=== PATIENT | female | born 1965 | race American Indian/Alaskan Native ===

== ENCOUNTER 2019-01-14 22:38 | Inpatient (IN) | payer SELFPAY ==
--- NOTE | 2019-01-14 22:44 | Emergency Department Report ---
Blank Doc - Documentation Documentation: 53-year-old female that presents with AMS. Patient sent to room [address] Huang at bedside. Gave report to Dr. Huang and will put initial orders in.
[2019-01-14] MEDS ORDERED: LORazepam 2 MG/ML VIAL ONE (22:46)
[2019-01-14] MEDS ORDERED: LORazepam 2 MG/ML VIAL IM ONE (22:50)
--- NOTE | 2019-01-14 23:13 | Emergency Department Report ---
ED Altered Mental Status HPI - General Chief Complaint: Abdominal Pain Stated Complaint: ABD PAIN Time Seen by Provider: 01/14/19 22:39 Source: patient Mode of arrival: Wheelchair Limitations: Altered Mental Status - History of Present Illness Initial Comments: 53 yo F brought in by a friend. Patient was reportedly in a store exhibiting bizarre behavior, so they brought her to the ER. Friend reports history of drug abuse by patient. Patient is yelling, screaming, fighting with staff. Patient is not answering any questions. Patient requires sedation. MD Complaint: altered mental status -: unknown Consistency of Symptoms: constant Context: other (possible drug use) - Related Data Allergies Allergy/AdvReac Type Severity Reaction Status Date / Time No Known Allergies Allergy Verified 01/14/19 22:42 ED Review of Systems ROS: Stated complaint: ABD PAIN Other details as noted in HPI Comment: Unobtainable due to pts medical conditions ED Physical Exam - General Limitations: Altered Mental Status General appearance: alert - Head Head exam: Present: atraumatic, normocephalic - Eye Eye exam: Present: normal appearance, PERRL, EOMI - ENT ENT exam: Present: mucous membranes moist - Neck Neck exam: Present: normal inspection - Respiratory Respiratory exam: Present: normal lung sounds bilaterally. Absent: respiratory distress - Cardiovascular Cardiovascular Exam: Present: regular rate, normal rhythm - GI/Abdominal GI/Abdominal exam: Present: soft. Absent: distended - Extremities Exam Extremities exam: Present: full ROM - Neurological Exam Neurological exam: Present: alert, other (unable to assess fully, pt is yelling and screaming, fighting; she then calms down and is able to clearly state, "I'm ok, let me go home") - Psychiatric Psychiatric exam: Present: agitated - Skin Skin exam: Present: warm, dry, intact, normal color ED Course Vital Signs 01/14/19 01/14/19 01/15/19 22:41 23:00 00:00 Temperature 98.4 F Pulse Rate 71 65 60 Respiratory 34 H 24 20 Rate Blood Pressure 210/120 Blood Pressure 231/131 143/97 [Right] O2 Sat by Pulse 100 100 99 Oximetry 01/15/19 01/15/19 01/15/19 02:00 03:24 04:00 Temperature Pulse Rate 62 62 62 Respiratory 20 20 Rate Blood Pressure 169/99 Blood Pressure 162/99 163/99 [Right] O2 Sat by Pulse 98 99 Oximetry - Lab Data Result diagrams: 01/14/19 23:14 01/14/19 23:14 Lab Results 01/14/19 01/14/19 01/14/19 Range/Units 23:14 23:14 23:14 WBC 7.6 (4.5-11.0) K/mm3 RBC 5.22 H (3.65-5.03) M/mm3 Hgb 14.3 (10.1-14.3) gm/dl Hct 43.4 H (30.3-42.9) % MCV 83 (79-97) fl MCH 27 L (28-32) pg MCHC 33 (30-34) % RDW 15.9 H (13.2-15.2) % Plt Count 202 (140-440) K/mm3 Lymph % (Auto) 17.2 (13.4-35.0) % [place] % (Auto) 10.6 H (0.0-7.3) % Eos % (Auto) 1.0 (0.0-4.3) % Baso % (Auto) 0.5 (0.0-1.8) % Lymph # 1.3 (1.2-5.4) K/mm3 [place] # 0.8 (0.0-0.8) K/mm3 Eos # 0.1 (0.0-0.4) K/mm3 Baso # 0.0 (0.0-0.1) K/mm3 Add Manual Diff Complete Seg Neutrophils % 70.7 H (40.0-70.0) % Nucleated RBC % Not Reportable Seg Neutrophils # 5.5 (1.8-7.7) K/mm3 WBC Morphology Not Reportable Hypersegmented Neuts Not Reportable Hyposegmented Neuts Not Reportable Hypogranular Neuts Not Reportable Smudge Cells Not Reportable Toxic Granulation Not Reportable Toxic Vacuolation Not Reportable Dohle Bodies Not Reportable Pelger-Huet Anomaly Not Reportable Brian Rods Not Reportable Platelet Estimate Not Reportable Clumped Platelets Not Reportable Plt Clumps, EDTA Not Reportable Large Platelets Not Reportable Giant Platelets Not Reportable Platelet Satelliting Not Reportable Plt Morphology Comment Not Reportable RBC Morphology Not Reportable Dimorphic RBCs Not Reportable Polychromasia Not Reportable Hypochromasia Not Reportable Poikilocytosis Not Reportable Anisocytosis Not Reportable Microcytosis Not Reportable Macrocytosis Not Reportable Spherocytes Not Reportable Pappenheimer Bodies Not Reportable Sickle Cells Not Reportable Target Cells Not Reportable Tear Drop Cells Not Reportable Ovalocytes Not Reportable Helmet Cells Not Reportable Torre-Bradgate Bodies Not Reportable [place] Rings Not Reportable [place] Cells Not Reportable Bite Cells Not Reportable Crenated Cell Not Reportable Elliptocytes Not Reportable Acanthocytes (Spur) Not Reportable Rouleaux Not Reportable Hemoglobin C Crystals Not Reportable Schistocytes Not Reportable Malaria parasites Not Reportable Yuan Bodies Not Reportable Hem Pathologist Commnt Not Reportable Sodium 143 (137-145) mmol/L Potassium 3.1 L (3.6-5.0) mmol/L Chloride 99.0 (98-107) mmol/L Carbon Dioxide 28 (22-30) mmol/L Anion Gap 19 mmol/L BUN 21 H (7-17) mg/dL Creatinine 2.1 H (0.7-1.2) mg/dL Estimated GFR 25 ml/min BUN/Creatinine Ratio 10 % Glucose 111 H (65-100) mg/dL Calcium 9.4 (8.4-10.2) mg/dL Total Bilirubin 0.30 (0.1-1.2) mg/dL Direct Bilirubin < 0.2 (0-0.2) mg/dL AST 16 (5-40) units/L ALT 14 (7-56) units/L Alkaline Phosphatase 68 (35-129) units/L Total Creatine Kinase (30-135) units/L Total Protein 7.2 (6.3-8.2) g/dL Albumin 4.3 (3.9-5) g/dL Albumin/Globulin Ratio 1.5 % Urine Color (Yellow) Urine Turbidity (Clear) Urine pH (5.0-7.0) Ur Specific [place] (1.003-1.030) Urine Protein (Negative) mg/dL Urine Glucose (UA) (Negative) mg/dL Urine Ketones (Negative) mg/dL Urine Blood (Negative) Urine Nitrite (Negative) Urine Bilirubin (Negative) Urine Urobilinogen (<2.0) mg/dL Ur Leukocyte Esterase (Negative) Urine WBC (Auto) (0.0-6.0) /HPF Urine RBC (Auto) (0.0-6.0) /HPF U Epithel Cells (Auto) (0-13.0) /HPF Amorphous Crystals Urine Mucus /HPF Salicylates < 0.3 L (2.8-20.0) mg/dL Urine Opiates Screen Urine Methadone Screen Acetaminophen (10.0-30.0) ug/mL Ur Barbiturates Screen Ur Phencyclidine Scrn Ur Amphetamines Screen U Benzodiazepines Scrn Urine Cocaine Screen U Marijuana (THC) Screen Drugs of Abuse Note Plasma/Serum Alcohol (0-0.07) % 01/14/19 01/14/19 01/14/19 Range/Units 23:14 23:14 23:51 WBC (4.5-11.0) K/mm3 RBC (3.65-5.03) M/mm3 Hgb (10.1-14.3) gm/dl Hct (30.3-42.9) % MCV (79-97) fl MCH (28-32) pg MCHC (30-34) % RDW (13.2-15.2) % Plt Count (140-440) K/mm3 Lymph % (Auto) (13.4-35.0) % [place] % (Auto) (0.0-7.3) % Eos % (Auto) (0.0-4.3) % Baso % (Auto) (0.0-1.8) % Lymph # (1.2-5.4) K/mm3 [place] # (0.0-0.8) K/mm3 Eos # (0.0-0.4) K/mm3 Baso # (0.0-0.1) K/mm3 Add Manual Diff Seg Neutrophils % (40.0-70.0) % Nucleated RBC % Seg Neutrophils # (1.8-7.7) K/mm3 WBC Morphology Hypersegmented Neuts Hyposegmented Neuts Hypogranular Neuts Smudge Cells Toxic Granulation Toxic Vacuolation Dohle Bodies Pelger-Huet Anomaly Brian Rods Platelet Estimate Clumped Platelets Plt Clumps, EDTA Large Platelets Giant Platelets Platelet Satelliting Plt Morphology Comment RBC Morphology Dimorphic RBCs Polychromasia Hypochromasia Poikilocytosis Anisocytosis Microcytosis Macrocytosis Spherocytes Pappenheimer Bodies Sickle Cells Target Cells Tear Drop Cells Ovalocytes Helmet Cells Torre-Bradgate Bodies [place] Rings Khloe Cells Bite Cells Crenated Cell Elliptocytes Acanthocytes (Spur) Rouleaux Hemoglobin C Crystals Schistocytes Malaria parasites Yuan Bodies Hem Pathologist Commnt Sodium (137-145) mmol/L Potassium (3.6-5.0) mmol/L Chloride (98-107) mmol/L Carbon Dioxide (22-30) mmol/L Anion Gap mmol/L BUN (7-17) mg/dL Creatinine (0.7-1.2) mg/dL Estimated GFR ml/min BUN/Creatinine Ratio % Glucose (65-100) mg/dL Calcium (8.4-10.2) mg/dL Total Bilirubin (0.1-1.2) mg/dL Direct Bilirubin (0-0.2) mg/dL AST (5-40) units/L ALT (7-56) units/L Alkaline Phosphatase (35-129) units/L Total Creatine Kinase (30-135) units/L Total Protein (6.3-8.2) g/dL Albumin (3.9-5) g/dL Albumin/Globulin Ratio % Urine Color Yellow (Yellow) Urine Turbidity Cloudy (Clear) Urine pH 7.0 (5.0-7.0) Ur Specific [place] 1.011 (1.003-1.030) Urine Protein <15 mg/dl (Negative) mg/dL Urine Glucose (UA) 150 (Negative) mg/dL Urine Ketones Neg (Negative) mg/dL Urine Blood Sm (Negative) Urine Nitrite Neg (Negative) Urine Bilirubin Neg (Negative) Urine Urobilinogen < 2.0 (<2.0) mg/dL Ur Leukocyte Esterase Tr (Negative) Urine WBC (Auto) 3.0 (0.0-6.0) /HPF Urine RBC (Auto) 6.0 (0.0-6.0) /HPF U Epithel Cells (Auto) 22.0 H (0-13.0) /HPF Amorphous Crystals Few Urine Mucus Few /HPF Salicylates (2.8-20.0) mg/dL Urine Opiates Screen Urine Methadone Screen Acetaminophen < 5.0 L (10.0-30.0) ug/mL Ur Barbiturates Screen Ur Phencyclidine Scrn Ur Amphetamines Screen U Benzodiazepines Scrn Urine Cocaine Screen U Marijuana (THC) Screen Drugs of Abuse Note Plasma/Serum Alcohol < 0.01 (0-0.07) % 01/14/19 01/15/19 Range/Units 23:51 02:01 WBC (4.5-11.0) K/mm3 RBC (3.65-5.03) M/mm3 Hgb (10.1-14.3) gm/dl Hct (30.3-42.9) % MCV (79-97) fl MCH (28-32) pg MCHC (30-34) % RDW (13.2-15.2) % Plt Count (140-440) K/mm3 Lymph % (Auto) (13.4-35.0) % [place] % (Auto) (0.0-7.3) % Eos % (Auto) (0.0-4.3) % Baso % (Auto) (0.0-1.8) % Lymph # (1.2-5.4) K/mm3 [place] # (0.0-0.8) K/mm3 Eos # (0.0-0.4) K/mm3 Baso # (0.0-0.1) K/mm3 Add Manual Diff Seg Neutrophils % (40.0-70.0) % Nucleated RBC % Seg Neutrophils # (1.8-7.7) K/mm3 WBC Morphology Hypersegmented Neuts Hyposegmented Neuts Hypogranular Neuts Smudge Cells Toxic Granulation Toxic Vacuolation Dohle Bodies Pelger-Huet Anomaly Brian Rods Platelet Estimate Clumped Platelets Plt Clumps, EDTA Large Platelets Giant Platelets Platelet Satelliting Plt Morphology Comment RBC Morphology Dimorphic RBCs Polychromasia Hypochromasia Poikilocytosis Anisocytosis Microcytosis Macrocytosis Spherocytes Pappenheimer Bodies Sickle Cells Target Cells Tear Drop Cells Ovalocytes Helmet Cells Torre-Bradgate Bodies [place] Rings Khloe Cells Bite Cells Crenated Cell Elliptocytes Acanthocytes (Spur) Rouleaux Hemoglobin C Crystals Schistocytes Malaria parasites Yuan Bodies Hem Pathologist Commnt Sodium (137-145) mmol/L Potassium (3.6-5.0) mmol/L Chloride (98-107) mmol/L Carbon Dioxide (22-30) mmol/L Anion Gap mmol/L BUN (7-17) mg/dL Creatinine (0.7-1.2) mg/dL Estimated GFR ml/min BUN/Creatinine Ratio % Glucose (65-100) mg/dL Calcium (8.4-10.2) mg/dL Total Bilirubin (0.1-1.2) mg/dL Direct Bilirubin (0-0.2) mg/dL AST (5-40) units/L ALT (7-56) units/L Alkaline Phosphatase (35-129) units/L Total Creatine Kinase 149 H (30-135) units/L Total Protein (6.3-8.2) g/dL Albumin (3.9-5) g/dL Albumin/Globulin Ratio % Urine Color (Yellow) Urine Turbidity (Clear) Urine pH (5.0-7.0) Ur Specific [place] (1.003-1.030) Urine Protein (Negative) mg/dL Urine Glucose (UA) (Negative) mg/dL Urine Ketones (Negative) mg/dL Urine Blood (Negative) Urine Nitrite (Negative) Urine Bilirubin (Negative) Urine Urobilinogen (<2.0) mg/dL Ur Leukocyte Esterase (Negative) Urine WBC (Auto) (0.0-6.0) /HPF Urine RBC (Auto) (0.0-6.0) /HPF U Epithel Cells (Auto) (0-13.0) /HPF Amorphous Crystals Urine Mucus /HPF Salicylates (2.8-20.0) mg/dL Urine Opiates Screen Presumptive negative Urine Methadone Screen Presumptive negative Acetaminophen (10.0-30.0) ug/mL Ur Barbiturates Screen Presumptive negative Ur Phencyclidine Scrn Presumptive negative Ur Amphetamines Screen Presumptive negative U Benzodiazepines Scrn Presumptive negative Urine Cocaine Screen Presumptive positive U Marijuana (THC) Screen Presumptive negative Drugs of Abuse Note Disclamer Plasma/Serum Alcohol (0-0.07) % - EKG Data -: EKG Interpreted by Dc EKG shows normal: sinus rhythm, axis, intervals, QRS complexes, ST-T waves Rate: bradycardia Interpretation: no acute changes - Radiology Data Radiology results: report reviewed, image reviewed - Medical Decision Making 53 yo F presented to ED w/ agitation, altered mental status, requiring sedation w/ geodon and ativan. CT Head negative. Drug screen positive for cocaine. Pt initially severely hypertensive. Hydralazine given with resulting improvement in BP. BUN and Cr elevated. CK only slightly elevated. Does not appear to be in rhabdomyolysis. Due to altered mental status, hypertensive urgency and ARF, will admit to hospitalist. - Differential Diagnosis drug abuse, rhabdomyolysis, intracranial abnormality Critical Care Time: Yes Critical care time in (mins) excluding proc time.: 35 Critical care attestation.: If time is entered above; I have spent that time in minutes in the direct care of this critically ill patient, excluding procedure time. Critical Care Time: 35 min ED Disposition Clinical Impression: Cocaine abuse, Acute renal failure, Hypertensive emergency, Hypokalemia Disposition: [id number] OP ADMIT IP TO THIS HOSP Is pt being admited?: Yes Condition: Stable Instructions: Abdominal Pain (ED), Hypertension (ED) Time of Disposition: 04:18
[2019-01-14] MEDS ORDERED: ZIPRASIDONE MESYLATE 20 MG VIAL IM PRN (23:15)
[2019-01-14] MEDS ORDERED: ZIPRASIDONE MESYLATE 20 MG VIAL IM ONE (23:20)
[2019-01-14 23:39] LABS: Hematocrit 43.4 % (30.3-42.9); Hemoglobin 14.3 gm/dl (10.1-14.3); Mean Corpuscular HGB Conc 33 % (30-34); Mean Corpuscular Volume 83 fl (79-97); Platelet Count 202 K/mm3 (140-440); Red Blood Count 5.22 M/mm3 (3.65-5.03); Red Cell Distribution Width 15.9 % (13.2-15.2)
[2019-01-15 00:30] LABS: Amorphous Crystals,Urine Few; Bilirubin,Urine NEG (Negative); Blood,Urine SM (Negative); Color,Urine Yellow (Yellow); Mucus,Urine FEW /HPF; Protein,Urine <15 mg/dL mg/dL (Negative); Urobilinogen,Urine < 2.0 mg/dL (<2.0)
[2019-01-15 00:31] LABS: Amphetamine Screen,Urine PRESUMPTIVE NEGATIVE; Benzodiazepines Screen,Urine PRESUMPTIVE NEGATIVE; Cannabinoid Screen,Urine PRESUMPTIVE NEGATIVE; Methadone Screen,Urine PRESUMPTIVE NEGATIVE; Opiate Screen,Urine PRESUMPTIVE NEGATIVE
[2019-01-15 00:32] LABS: Alanine Aminotransferase 14 units/L (7-56); Albumin 4.3 g/dL (3.9-5); BUN/Creatinine Ratio 10; Blood Urea Nitrogen 21 mg/dL (7-17); Calcium 9.4 mg/dL (8.4-10.2); Hemolysis Index 27
[2019-01-15 00:49] LABS: Cocaine Screen,Urine PRESUMPTIVE POSITIVE
[2019-01-15 01:07] LABS: Bilirubin,Direct < 0.2 mg/dL (0-0.2)
--- NOTE | 2019-01-15 01:18 | Cat Scan Report ---
CT head/brain wo con INDICATION: AMS. TECHNIQUE: Routine CT head without contrast. All CT scans at this location are performed using CT dos e reduction for ALARA by means of automated exposure control. COMPARISON: None. FINDINGS: BRAIN / INTRACRANIAL CONTENTS: No acute hemorrhage, mass effect, midline shift, or hydrocephalus. No appreciable acute large territorial or lacunar infarct. No chronic infarct or focal atrophy. Normal b rain volume and ventricular/sulcal size for age. ORBITS: No significant abnormality of visualized orbits. SINUSES / MASTOIDS: No significant abnormality of visualized sinuses and mastoid air cells. ADDITIONAL FINDINGS: None. IMPRESSION: 1. No acute intracranial abnormality on noncontrast CT of the brain. Signer Name: Ibeth Johnson MD Signed: 01/15/2019 1:13 AM Workstation Name: [id number]
[2019-01-15] MEDS ORDERED: SODIUM CHLORIDE 0.9% 1000 ML 1,000 ML ONE (01:56)
[2019-01-15] MEDS ORDERED: SODIUM CHLORIDE 0.9% 1000 ML 1,000 ML IV ONE (01:56)
[2019-01-15] MEDS ORDERED: hydrALAZINE 20 MG/1 ML INJ IV ONE (02:41)
[2019-01-15] MEDS ORDERED: POTASSIUM CHLORIDE 10 MEQ 10 MEQ/100 ML BAG IV ONE ×2 (03:08→07:11)
[2019-01-15] MEDS: POTASSIUM CHLORIDE 10 MEQ 10 MEQ/100 ML BAG IV SCH ×4 (03:24→07:18)
[2019-01-15 05:04] LABS: Basophils % (Auto) 0.5 % (0.0-1.8); Eosinophils # (Auto) 0.1 K/mm3 (0.0-0.4); Lymphocytes # (Auto) 1.3 K/mm3 (1.2-5.4); Lymphocytes % (Auto) 17.2 % (13.4-35.0); Monocytes # (Auto) 0.8 K/mm3 (0.0-0.8); Monocytes % (Auto) 10.6 % (0.0-7.3)
[2019-01-15] MEDS ORDERED: hydrALAZINE 20 MG/1 ML INJ IV PRN (05:30)
[2019-01-15] MEDS ORDERED: ACETAMINOPHEN 325 MG TAB PO PRN (05:33)
[2019-01-15] MEDS ORDERED: LORazepam 2 MG/ML VIAL IV PRN (05:44)
[2019-01-15] MEDS ORDERED: SODIUM CHLORIDE 0.9% 1000 ML 1,000 ML IV SCH (06:00)
--- NOTE | 2019-01-15 07:09 | History and Physical Report ---
CHIEF COMPLAINT: Change in mental status. HISTORY OF PRESENT ILLNESS: The patient is a 53-year-old female brought in by a friend because of aggressive and combative behavior. The patient's friend said that the patient has a history of illicit drug abuse. The patient was noted to have come into the Emergency Room, yelling, screaming and fighting with the staff and was not able to provide a reliable history and subsequently the patient was sedated to be able to prevent violence. There was no prior history of nausea or vomiting and no history of fever or chills or shortness of breath. PAST MEDICAL HISTORY: Pertinent for illicit drug abuse. FAMILY HISTORY: Noncontributory. PAST SURGICAL HISTORY: Noncontributory. SOCIAL HISTORY: The patient is known to use illicit drugs, it is not clear whether the patient drinks alcohol or smokes cigarette. MEDICATIONS: The patient's home medications are not known at this time. ALLERGIES: There are no known drug allergies. REVIEW OF SYSTEMS: CONSTITUTIONAL: There is no fever, no chills, no diaphoresis. HEENT: There is no headache or sore throat. CARDIOVASCULAR SYSTEM: There is no chest pain or orthopnea. RESPIRATORY SYSTEM: There is no shortness of breath or cough. GASTROINTESTINAL SYSTEM: There is no nausea, no vomiting, no abdominal pain, diarrhea or constipation. NEUROLOGICAL SYSTEM: There is altered mental status with agitation and combativeness. MUSCULOSKELETAL SYSTEM: There is no joint pain or swelling. DERMATOLOGICAL SYSTEM: There is no skin rash or itching. GENITOURINARY SYSTEM: There is no dysuria, hematuria, or flank pain. Rest of system review is normal. PHYSICAL EXAMINATION: GENERAL: At the time of exam, the patient was found to be sleeping on her bed after being sedated following combativeness and not in acute distress. VITAL SIGNS: At the initial time of presentation showed temperature of 98.4 degrees Fahrenheit, pulse of 71, respirations 34, initial blood pressure 231/131, blood pressure has come down to 162/99 after treatment. O2 sat was 100% on room air. HEENT: Showed pupils to be equal, round, reactive to light and accommodating. NECK: Supple with no JVD or carotid bruit. CARDIOVASCULAR SYSTEM: Showed normal first and second heart sounds, which were rapid initially, but later on became normal with no gallops or murmurs. RESPIRATORY SYSTEM: Showed good air entry on both sides of the lungs with no abnormal breath sounds. GASTROINTESTINAL SYSTEM: Showed abdomen to be full, soft, nontender with no organomegaly or rigidity. NEUROLOGIC: Shows no focal deficit. MUSCULOSKELETAL SYSTEM: Showed no joint swelling or tenderness. DERMATOLOGICAL SKIN: Showed no skin rash. GENITOURINARY SYSTEM: Showing no costovertebral angle tenderness. PERTINENT LABORATORY AND IMAGING STUDIES: The patient had CT of the head without contrast done that shows no acute intracranial abnormality. The patient's lab results show CBC with normal white count, normal hemoglobin with slightly elevated hematocrit level of 43.4. CBC differential shows elevated monocyte count of 10.6 and slightly elevated, segmented neutrophil count of 70.7%. The patient's chemistry showed low potassium level of 3.1 with elevated BUN of 21 and elevated creatinine of 2.1. Rest of chemistry was unremarkable. The patient's urinalysis was unremarkable, and the patient's toxicology screen is positive for cocaine. DIAGNOSES: 1. Altered mental status with combativeness. 2. Acute kidney injury. 3. Hypertensive crisis. 4. Cocaine abuse. 5. Hypokalemia PLAN OF CARE: 1. The patient will be admitted to telemetry as inpatient. 2. The patient will have serial cardiac enzymes involving troponin, total CK, and CK-MB checked q. 6 hours x 2 more levels. 3. The patient will be on IV normal saline running at 125 mL an hour. 4. The patient will have Nephrology consult with Dr. Flores for management of acute kidney injury. 5. The patient will be on IV hydralazine 10 mg every 4 hours as needed for blood pressure of 150/90 or more. 6. The patient will have basic metabolic panel done this morning to monitor potassium level having received some IV potassium replacement 7. The patient will be on IV Ativan 1 mg every 2 hours as needed for agitation and combativeness. JOB# [id number] OCN/NTS JULIO C
--- NOTE | 2019-01-15 10:17 | Event Note ---
Date: 01/15/19 This is a follow-up from an admission earlier this morning. Patient remains confused and agitated requiring 4 point restraints. Encephalopathy etiology may be related to hypertension versus metabolic from acute kidney injury. We'll add neurology consultation. Nephrology consultation pending. Creatinine is 2.1 with no known baseline. We will continue the plan as outlined in H&P.
[2019-01-15 10:22] LABS: Creatine Kinase MB 3.2 ng/mL (0.0-4.0)
[2019-01-15 10:26] LABS: BUN/Creatinine Ratio 11; Blood Urea Nitrogen 17 mg/dL (7-17); Calcium 9.3 mg/dL (8.4-10.2); Hemolysis Index 15
--- NOTE | 2019-01-15 11:44 | Consultation ---
History of Present Illness - Reason for Consult Consult date: 01/15/19 acute renal failure Requesting physician: JAVIER PURCELL - History of Present Illness 53 yo F brought in by a friend. Patient was reportedly in a store exhibiting bizarre behavior, so they brought her to the ER. Friend reports history of drug abuse by patient. Patient is yelling, screaming, fighting with staff. Patient is not answering any questions. Patient requires sedation. MD Complaint: altered mental status -: unknown Consistency of Symptoms: constant Context: other (possible drug use) ED Review of Systems ROS: Stated complaint: ABD PAIN Other details as noted in HPI Past History Past Medical History: other (drug abuse) Social history: IV drug use Family history: no significant family history Medications and Allergies Allergies Allergy/AdvReac Type Severity Reaction Status Date / Time No Known Allergies Allergy Verified 01/14/19 22:42 Home Medications Medication Instructions Recorded Confirmed Last Taken Type Unobtainable 01/15/19 01/15/19 Unknown History Active Meds: Active Medications Acetaminophen (Tylenol) 650 mg PO Q4H PRN PRN Reason: Headache Heparin Sodium (Porcine) (Heparin) 5,000 unit SUB-Q Q12HR SELVIN Hydralazine HCl (Apresoline) 10 mg IV Q4H PRN PRN Reason: Blood Pressure Sodium Chloride (Nacl 0.9% 1000 Ml) 1,000 mls @ 125 mls/hr IV DIRECT SELVIN Lorazepam (Ativan) 1 mg IV Q2H PRN PRN Reason: Agitation Last Admin: 01/15/19 08:26 Dose: 1 mg Documented by: Exam - Vital Signs Vital signs: Vital Signs Pulse Resp BP Pulse Ox 71 34 H 231/131 100 01/14/19 22:41 01/14/19 22:41 01/14/19 22:41 01/14/19 22:41 - Physical Exam Narrative exam: - General Limitations: Altered Mental Status General appearance: alert - Head Head exam: Present: atraumatic, normocephalic - Eye Eye exam: Present: normal appearance, PERRL, EOMI - ENT ENT exam: Present: mucous membranes moist - Neck Neck exam: Present: normal inspection - Respiratory Respiratory exam: Present: normal lung sounds bilaterally. Absent: respiratory distress - Cardiovascular Cardiovascular Exam: Present: regular rate, normal rhythm - GI/Abdominal GI/Abdominal exam: Present: soft. Absent: distended - Extremities Exam Extremities exam: Present: full ROM - Neurological Exam Neurological exam: Present: alert, other (unable to assess fully, pt is yelling and screaming, fighting; she then calms down and is able to clearly state, "I'm ok, let me go home") - Psychiatric Psychiatric exam: Present: agitated - Skin Skin exam: Present: warm, dry, intact, normal color Results - Lab Results 01/14/19 23:14 01/15/19 09:10 Most recent lab results Calcium 9.3 mg/dL (8.4-10.2) 01/15/19 09:10 Assessment and Plan Impression: * ABIEL * volume depletion * drug abuse * hypokalemia * UTI Plan: * ivfs and iv abx * replete k and follow up mag levels * strict i/os * cr is improving * follow up lytes in am
[2019-01-15] MEDS ORDERED: SODIUM CHLORIDE 0.9% 1000 ML 1,000 ML with POTASSIUM CHLORIDE 20 MEQ IV SCH (11:45)
[2019-01-15] MEDS ORDERED: NACL 0.9%/KCL 20 MEQ 20 MEQ/1,000 ML BAG IV SCH (12:00)
[2019-01-15 13:30] LABS: Creatine Kinase MB 2.9 ng/mL (0.0-4.0)
[2019-01-15] MEDS: cefTRIAXone/NS 1 GM/50 ML 1 GM/50 ML BAG IV SCH (14:39)
[2019-01-15] MEDS ORDERED: MAGNESIUM SULFATE 2 GM/50 ML BAG IV ONE (16:00)
--- NOTE | 2019-01-15 17:17 | Consultation ---
History of Present Illness Consult date: 01/15/19 Reason for Consult: Altered mental status Chief complaint: Altered mental status History of present illness: Patient is a 53-year-old woman with a history of substance abuse. Yesterday, she was reportedly with a friend in a store, when she was noted to have altered mental status. The patient was therefore brought to the emergency room. In the emergency room she was noted to be aggressive and combative, for which she was sedated. Patient was found to have elevated creatinine level, as well as hypertensive urgency. Today, the patient reportedly is back to baseline of mental status, however she is noncooperative as she wants to go home. Past History Past Medical History: other (drug abuse) Social history: IV drug use, other (cocaine) Family history: no significant family history Medications and Allergies Allergies Allergy/AdvReac Type Severity Reaction Status Date / Time No Known Allergies Allergy Verified 01/14/19 22:42 Home Medications Medication Instructions Recorded Confirmed Last Taken Type Unobtainable 01/15/19 01/15/19 Unknown History Active Meds: Active Medications Acetaminophen (Tylenol) 650 mg PO Q4H PRN PRN Reason: Headache Heparin Sodium (Porcine) (Heparin) 5,000 unit SUB-Q Q12HR SELVIN Hydralazine HCl (Apresoline) 10 mg IV Q4H PRN PRN Reason: Blood Pressure Last Admin: 01/15/19 14:22 Dose: 10 mg Documented by: Magnesium Sulfate (Magnesium Sulfate 2gm/50ml) 2 gm in 50 mls @ 25 mls/hr IV ONCE ONE Stop: 01/15/19 17:59 Ceftriaxone Sodium (Rocephin/Ns 1 Gm/50 Ml) 1 gm in 50 mls @ 100 mls/hr IV Q24HR SELVIN; Protocol Potassium Chloride/Sodium Chloride (Ns/Kcl 20meq) 20 meq in 1,000 mls @ 125 mls/hr IV DIRECT SELVIN Lorazepam (Ativan) 1 mg IV Q2H PRN PRN Reason: Agitation Last Admin: 01/15/19 08:26 Dose: 1 mg Documented by: Review of Systems ROS unobtainable: due to mental status (Patient non-cooperative and voluntarily refuses to answer questions.) Physical Examination - Vital Signs Vital Signs: Vital Signs Pulse Resp BP Pulse Ox 71 34 H 231/131 100 01/14/19 22:41 01/14/19 22:41 01/14/19 22:41 01/14/19 22:41 - Physical Exam Narrative exam: Patient is awake, alert, oriented 4, follows complex commands. Patient notably was given Ativan prior to exam due to combative behavior. Patient is noncooperative when asked questions and asked to follow most commands. Noted to move all extremities equally and spontaneously in an attempt to get out of restraints. Visual field full to threat. Pupils equal, round, reactive to light. No facial weakness noted. - Constitutional General appearance: uncomfortable - EENT EENT: Present: ATNC, PERRL, mucous membranes moist - Respiratory Respiratory: Present: lungs clear, normal breath sounds - Cardiovascular Cardiovascular: Present: regular rate, normal S1, normal S2 Extremities: Present: no clubbing, cyanosis, no inflammation - Gastrointestinal Gastrointestinal: Present: normoactive bowel sounds, soft, non-tender - Integumentary Integumentary: Present: normal - Psychiatric Psychiatric: Present: other (Noncooperative) Results - Laboratory Findings CBC and BMP: 01/14/19 23:14 01/15/19 09:10 Abnormal Lab Findings: Abnormal Labs 01/14/19 01/14/19 01/14/19 23:14 23:14 23:14 RBC 5.22 H Hct 43.4 H MCH 27 L RDW 15.9 H Assumption % (Auto) 10.6 H Seg Neutrophils % 70.7 H Potassium 3.1 L BUN 21 H Creatinine 2.1 H Glucose 111 H Total Creatine Kinase U Epithel Cells (Auto) Salicylates < 0.3 L Acetaminophen 01/14/19 01/14/19 01/15/19 23:14 23:51 02:01 RBC Hct MCH RDW Assumption % (Auto) Seg Neutrophils % Potassium BUN Creatinine Glucose Total Creatine Kinase 149 H U Epithel Cells (Auto) 22.0 H Salicylates Acetaminophen < 5.0 L 01/15/19 01/15/19 09:10 12:11 RBC Hct MCH RDW [place] % (Auto) Seg Neutrophils % Potassium 3.2 L BUN Creatinine 1.5 H Glucose Total Creatine Kinase 208 H 202 H U Epithel Cells (Auto) Salicylates Acetaminophen Assessment and Plan Patient is a 53-year-old woman with a history of substance abuse, who p/w altered mental status. According the patient's clinical findings, it is likely that she has had metabolic encephalopathy related to hypertensive urgency, AK I with elevated creatinine, as well as substance abuse, as cocaine was found positive in her UDS. Of note, mental status is now back to baseline, however patient is notably noncooperative as she wants to leave the hospital. Plan: 1. Metabolic Encephalopathy: - Likely due to ABIEL, Hypertensive urgency, and cocaine use - CT head unremarkable. - Patient back at baseline mental status now, however nocooperative as she wants to be discharged. - As patient is back to baseline of mental status, would not recommend any further neurologic investigations at this time. - Recommend for primary team to continue to correct metabolic abnormalities. - Will sign off as patient is now back to baseline of mental status. Please call with any questions. Thank you for allowing me to take part in the care of this patient. Maximo Edwards MD Neurology
[2019-01-15] MEDS: HEPARIN 5,000 UNIT/1 ML VIAL SUB-Q SCH (17:38)
[2019-01-16] MEDS: HEPARIN 5,000 UNIT/1 ML VIAL SUB-Q SCH ×2 (00:14→11:51)
[2019-01-16 00:46] VITALS: BP 124/90
[2019-01-16 04:56] LABS: Basophils # (Auto) 0.1 K/mm3 (0.0-0.1); Basophils % (Auto) 0.6 % (0.0-1.8); Eosinophils # (Auto) 0.1 K/mm3 (0.0-0.4); Eosinophils % (Auto) 1.1 % (0.0-4.3); Hematocrit 50.2 % (30.3-42.9); Hemoglobin 15.9 gm/dl (10.1-14.3); Lymphocytes # (Auto) 2.3 K/mm3 (1.2-5.4); Lymphocytes % (Auto) 25.5 % (13.4-35.0); Mean Corpuscular HGB Conc 32 % (30-34); Mean Corpuscular Volume 84 fl (79-97); Monocytes # (Auto) 1.1 K/mm3 (0.0-0.8); Monocytes % (Auto) 12.8 % (0.0-7.3); Platelet Count 234 K/mm3 (140-440); Red Blood Count 5.98 M/mm3 (3.65-5.03); Red Cell Distribution Width 16.3 % (13.2-15.2)
[2019-01-16 05:22] LABS: Calcium 8.9 mg/dL (8.4-10.2)
[2019-01-16 05:23] LABS: Calcium 9.1 mg/dL (8.4-10.2)
[2019-01-16] MEDS ORDERED: POTASSIUM CHLORIDE ER 20 MEQ TAB PO NR (08:05)
--- NOTE | 2019-01-16 09:48 | Discharge Summary ---
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 Patient was reportedly in a store exhibiting bizarre behavior, so they brought her to the ER. Friend reports history of drug abuse by patient. Patient is yelling, screaming, fighting with staff. Patient is not answering any questions. Patient requires sedation. Patient was admitted to the floor for the management of acute kidney injury, cocaine abuse, altered mental status. Patient was agitated and refused the treatment. I have seen and evaluated this patient this morning patient was alert, oriented x 4 and have explained the risks benefits of getting treatment and staying in the hospital, patient understood and declined. Patient is not on 1013, not confused, so I don't see the rationale of with holding and giving treatment without her consent. On admission creatinine was 2.1 and this morning was 1.9. UTI was mentioned but the UA is negative. Patient counseled about using of cocaine but she denied using of it. patient discharged home with amlodipine and potassium for hypokalemia. Advised to hydrate herself. patient advised to have follow up with PCP. Nephrology consult noted. Discussed with neurology and cleared from neurology point of view. Disposition: DC-01 TO HOME OR SELFCARE Time spent for discharge: 32 minutes - Discharge Diagnoses (1) Acute renal failure Status: Acute (2) Cocaine abuse Status: Acute (3) Hypertensive emergency Status: Acute (4) Hypokalemia Status: Acute Core Measure Documentation - Palliative Care Palliative Care/ Comfort Measures: Not Applicable - Core Measures Any of the following diagnoses?: none Exam - Physical Exam Narrative exam: Not in cardiopulmonary distress. The patient is obese. Vital signs as documented. Head exam is unremarkable. No scleral icterus . Neck is without jugular venous distension, thyromegaly, or carotid bruits. Lungs are clear to auscultation. Cardiac exam reveals regular rate and Rhythm. Abdominal exam reveals normal bowel sounds. Extremities are nonedematous and both femoral and pedal pulses are normal. 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 No focal weakness. - Constitutional Vitals: Temp Pulse Resp BP Pulse Ox 98.2 F 101 H 20 124/90 94 01/15/19 16:00 01/16/19 00:46 01/15/19 23:45 01/15/19 23:45 01/15/19 22:05 Plan Activity: no restrictions Weight Bearing Status: Full Weight Bearing Diet: low salt Follow up with: PRIMARY CAREMD [Primary Care Provider] - 3-5 Days JUAN CARLOS GUSTAFSON MD [Staff Physician] - 7 Days Prescriptions: amLODIPine [Norvasc] 5 mg PO DAILY #30 tab Potassium Chloride 20 meq PO QDAY #7 packet
[2019-01-16] MEDS: cefTRIAXone/NS 1 GM/50 ML 1 GM/50 ML BAG IV SCH (11:52)
[2019-01-16] MEDS ORDERED: FLU VACC QUAD 2019-20 (3 YR UP)/PF 60 MCG/0.5 ML SYRINGE IM ONE (12:00)
--- NOTE | 2019-01-16 12:07 | Progress Note ---
Assessment and Plan Impression: * ABIEL * volume depletion * drug abuse * hypokalemia * UTI Plan: * ivfs and iv abx * replete k and follow up mag levels * strict i/os * cr is higher today, make sure patient receives ivfs and iv abx * follow up lytes in am Subjective Date of service: 01/16/19 Principal diagnosis: abiel Interval history: resting in bed Objective - Exam Narrative Exam: - General Limitations: Altered Mental Status General appearance: alert - Head Head exam: Present: atraumatic, normocephalic - Eye Eye exam: Present: normal appearance, PERRL, EOMI - ENT ENT exam: Present: mucous membranes moist - Neck Neck exam: Present: normal inspection - Respiratory Respiratory exam: Present: normal lung sounds bilaterally. Absent: respiratory distress - Cardiovascular Cardiovascular Exam: Present: regular rate, normal rhythm - GI/Abdominal GI/Abdominal exam: Present: soft. Absent: distended - Extremities Exam Extremities exam: Present: full ROM - Neurological Exam Neurological exam: Present: alert, other (unable to assess fully, pt is yelling and screaming, fighting; she then calms down and is able to clearly state, "I'm ok, let me go home") - Psychiatric Psychiatric exam: Present: agitated - Skin Skin exam: Present: warm, dry, intact, normal color - Vital Signs Vital signs: Vital Signs - 12hr 01/16/19 00:46 Pulse Rate 101 H - Lab 01/16/19 03:54 01/16/19 03:54 Most recent lab results Calcium 8.9 mg/dL (8.4-10.2) 01/16/19 03:54 Calcium 9.1 mg/dL (8.4-10.2) 01/16/19 03:54 Magnesium 1.70 mg/dL (1.7-2.3) 01/15/19 12:11 Medications & Allergies - Medications Allergies/Adverse Reactions: Allergies No Known Allergies Allergy (Verified 01/14/19 22:42) Home Medications: Home Medications Medication Instructions Recorded Confirmed Last Taken Type Potassium Chloride 20 meq PO QDAY #7 packet 01/16/19 Unknown Rx amLODIPine [Norvasc] 5 mg PO DAILY #30 tab 01/16/19 Unknown Rx
[2019-01-16] MEDS ORDERED: SODIUM CHLORIDE 0.45% 1000 ML 1,000 ML with POTASSIUM CHLORIDE 20 MEQ IV SCH (13:00)
[2019-01-16] MEDS ORDERED: cefTRIAXone/NS 1 GM/50 ML 1 GM/50 ML BAG IV SCH (13:00)
== END 2019-01-16 12:04 | disposition home or self-care (01) | DRG 682 ==
LOC: ED 22:38 → 4A 01-15 06:18
PROVIDERS: ADMIT Internal Medicine; ATTEND Internal Medicine
DX: N17.9 Acute kidney failure, unspecified (principal); G93.41 Metabolic encephalopathy; I16.1 Hypertensive emergency; N39.0 Urinary tract infection, site not specified; E87.6 Hypokalemia; F10.10 Alcohol abuse, uncomplicated; Y90.9 Presence of alcohol in blood, level not specified; I10 Essential (primary) hypertension; Z79.899 Other long term (current) drug therapy
CPT/HCPCS: 36415; 70450; 80048; 80076; 80307; 80320; 81001; 82550; 82553; 83735; 84484; 85007; 85025; 90686; 93005; 93010; 96361; 96372; 96374; 96375; G0378; G0480; J0360; J0696; J1644; J2060; J3475; J3480; J3486; J7030